=== PATIENT | male | born 1975 | race Hispanic/Latino ===

== ENCOUNTER 2022-07-07 07:52 | Observation (INO) | payer OTHER ==
[~2022-07-07] VITALS: Ht 160 cm; Wt 72.6 kg
[2022-07-07] MEDS ORDERED: NITROGLYCERIN 0.4 MG SL TAB SL ONE (08:14)
[2022-07-07] MEDS ORDERED: NITROGLYCERIN 1GM OINT 1 INCH/1GM TD ONE (08:14)
[2022-07-07] MEDS ORDERED: ASPIRIN 325MG TAB ONE (08:14)
[2022-07-07] MEDS ORDERED: METOPROLOL TARTRATE 1 MG/ML 5ML VIAL IV SCH (08:20)
[2022-07-07 09:05] LABS: BASOPHILS % (AUTO) 0.6 % (0.0-5.0); EOSINOPHILS % (AUTO) 1.6 % (0.0-8.0); HEMATOCRIT 44.8 % (42-54); LYMPHOCYTES % (AUTO) 19.1 % (21.0-51.0); MEAN CORPUSCULAR HGB CONC 34.2 g/dL (32.0-36.0); MONOCYTES % (AUTO) 7.6 % (3.0-13.0); NEUTROPHILS % (AUTO) 70.7 % (40.0-77.0); PLATELET COUNT (AUTO) 207 K/uL (130-400); RED BLOOD CELL COUNT(AUTO) 5.27 MIL/uL (4.50-6.20); RED CELL DISTRIBUTION WIDTH 12.1 % (11.0-15.5); WHITE BLOOD COUNT (AUTO) 7.9 K/uL (4.8-10.8)
[2022-07-07 09:14] LABS: CREATININE 1.1 mg/dL (0.5-1.5)
[2022-07-07 09:19] LABS: ALBUMIN 3.8 g/dL (3.5-5.0); TOTAL PROTEIN, SERUM 7.5 g/dL (6.0-8.3)
[2022-07-07 10:45] LABS: B-TYPE NATRIURETIC PEPTIDE < 5 pg/mL (0-100)
[2022-07-07 11:39] LABS: HEMOGLOBIN A1C 7.3 % (4.0-6.0)
[2022-07-07] MEDS ORDERED: NITROGLYCERIN 0.4 MG SL TAB SL PRN (12:30)
[2022-07-07 13:35] LABS: AMPHET/METH SCREEN,URINE NEGATIVE (NEGATIVE); BARBITURATE SCREEN, URINE NEGATIVE (NEGATIVE); BENZODIAZEPINES SCREEN,URINE NEGATIVE (NEGATIVE); CANNABINOID SCREEN,URINE NEGATIVE (NEGATIVE); COCAINE SCREEN,URINE NEGATIVE (NEGATIVE); OPIATE SCREEN,URINE NEGATIVE (NEGATIVE); PHENCYCLIDINE SCREEN,URINE NEGATIVE (NEGATIVE)
[2022-07-07] MEDS: CLOPIDOGREL 75MG TAB PO SCH (14:42)
[2022-07-07] MEDS ORDERED: MORPHINE 2 MG SYG ONE (17:32)
[2022-07-07] MEDS ORDERED: ONDANSETRON 4MG INJ ONE (17:32)
[2022-07-07] MEDS ORDERED: ONDANSETRON 4MG INJ IVP ONE (18:00)
[2022-07-07] MEDS ORDERED: MORPHINE 2 MG SYG IVP ONE (18:00)
[2022-07-07 18:15] VITALS: BP 147/97
[2022-07-07] MEDS ORDERED: CLOP-31 PO (18:29)
[2022-07-07] MEDS ORDERED: SUMA100T16 PO (18:29)
[2022-07-07] MEDS ORDERED: AMLO-258 PO (18:29)
[2022-07-07] MEDS ORDERED: ACET-2123 PO (18:29)
[2022-07-07] MEDS ORDERED: HYDR25TA PO (18:29)
[2022-07-07] MEDS ORDERED: METF-446 PO (18:29)
[2022-07-07] MEDS ORDERED: LOSA100T58 PO (18:29)
[2022-07-07] MEDS ORDERED: EZET10TA13 PO (18:29)
[2022-07-07] MEDS ORDERED: TRAZ-185 PO (18:29)
[2022-07-07] MEDS ORDERED: NITR0.3T11 SL (18:29)
[2022-07-07] MEDS ORDERED: PANT20TA PO (18:29)
[2022-07-07] MEDS ORDERED: FLUO20CA30 PO (18:29)
[2022-07-07] MEDS ORDERED: CARV25TA PO (18:29)
[2022-07-07 19:50] VITALS: BP 140/95
[2022-07-07] MEDS ORDERED: ATORVASTATIN 40 MG TABLET PO SCH (21:00)
[2022-07-07] MEDS: CARVEDILOL 25 MG TABLET PO SCH (21:06)
[2022-07-07 23:46] VITALS: BP 98/65
[2022-07-08 04:20] VITALS: BP 94/70
[2022-07-08 06:04] LABS: BASOPHILS % (AUTO) 0.6 % (0.0-5.0); EOSINOPHILS % (AUTO) 2.3 % (0.0-8.0); HEMATOCRIT 44.7 % (42-54); LYMPHOCYTES % (AUTO) 19.1 % (21.0-51.0); MEAN CORPUSCULAR HEMOGLOBIN 29.2 pg (27.0-33.0); MEAN CORPUSCULAR VOLUME 85.8 fL (79-99); MONOCYTES % (AUTO) 8.8 % (3.0-13.0); NEUTROPHILS % (AUTO) 68.7 % (40.0-77.0); PLATELET COUNT (AUTO) 221 K/uL (130-400); RED BLOOD CELL COUNT(AUTO) 5.21 MIL/uL (4.50-6.20); RED CELL DISTRIBUTION WIDTH 12.2 % (11.0-15.5); WHITE BLOOD COUNT (AUTO) 9.5 K/uL (4.8-10.8)
[2022-07-08 06:12] LABS: CREATININE 1.5 mg/dL (0.5-1.5); MAGNESIUM 1.6 mg/dL (1.80-2.40); POTASSIUM 4.1 mmol/L (3.5-5.1)
[2022-07-08] MEDS ORDERED: MAGNESIUM 2GM PREMIX 50ML 50 ML IV PRN (08:00)
[2022-07-08 08:39] VITALS: BP 129/89
[2022-07-08] MEDS ORDERED: PANTOPRAZOLE 40 MG TAB DR PO SCH (09:00)
[2022-07-08] MEDS ORDERED: FLUOXETINE HCL 20 MG CAPSULE PO SCH (09:00)
[2022-07-08] MEDS ORDERED: AMLODIPINE 5 MG TAB PO SCH (09:00)
[2022-07-08] MEDS: CARVEDILOL 25 MG TABLET PO SCH (09:15)
[2022-07-08] MEDS: CLOPIDOGREL 75MG TAB PO SCH (09:15)
[2022-07-08] MEDS ORDERED: MAGNESIUM OXIDE 400 MG TABLET PO SCH (11:30)
[2022-07-08 12:08] VITALS: BP 124/87
[2022-07-08 16:43] VITALS: BP 133/96
== END 2022-07-08 17:57 | disposition home or self-care (01) ==
LOC: EDH 07:52 → EDHIP 11:03 → 2DH 18:00
PROVIDERS: ADMIT Internal Medicine; ATTEND Internal Medicine
DX: I25.10 Atherosclerotic heart disease of native coronary artery without angina pectoris (principal); I10 Essential (primary) hypertension; E11.9 Type 2 diabetes mellitus without complications; E78.5 Hyperlipidemia, unspecified; I25.2 Old myocardial infarction; R55 Syncope and collapse; I16.0 Hypertensive urgency; R07.89 Other chest pain; E78.00 Pure hypercholesterolemia, unspecified; I25.110 Atherosclerotic heart disease of native coronary artery with unstable angina pectoris; Z98.61 Coronary angioplasty status; Z79.899 Other long term (current) drug therapy; Z79.84 Long term (current) use of oral hypoglycemic drugs; Z95.1 Presence of aortocoronary bypass graft; Z98.890 Other specified postprocedural states; Y93.K1 Activity, walking an animal
CPT/HCPCS: 36415; 71045; 80048; 80053; 80305; 82948; 83036; 83735; 83880; 84443; 84484; 85025; 93005; 93306; 93356; 93880; 96365; 99291; G0378; J2405; J3475

== ENCOUNTER 2023-06-25 19:55 | Emergency (ER) | payer BC, OTHER ==
[~2023-06-25] VITALS: Ht 160 cm; Wt 76.7 kg
[~2023-06-25 19:55] MED LIST: ACET-2123 PO; AMLO-258 PO; CARV25TA PO; CLOP-31 PO; EZET10TA81 PO; FLUO20CA30 PO; HYDR25TA PO; LOSA100T59 PO; METF-446 PO; NITR0.3T11 SL; PANT20TA PO; SUMA100T16 PO; TRAZ-185 PO
[2023-06-25 20:49] LABS: BASOPHILS # (AUTO) 0.09 K/uL (0.00-0.20); BASOPHILS % (AUTO) 0.5 % (0.0-5.0); EOSINOPHILS # (AUTO) 0.47 K/uL (0.00-0.70); EOSINOPHILS % (AUTO) 2.8 % (0.0-8.0); HEMATOCRIT 46.3 % (42-54); IMMATURE GRANULOCYTE ABSOLUTE 0.06 K/uL (0-1); LYMPHOCYTES # (AUTO) 1.9 K/uL (1.0-4.8); LYMPHOCYTES % (AUTO) 11.2 % (21.0-51.0); MEAN CORPUSCULAR HEMOGLOBIN 29.4 pg (27.0-33.0); MEAN CORPUSCULAR HGB CONC 34.8 g/dL (32.0-36.0); MEAN CORPUSCULAR VOLUME 84.6 fL (79-99); MONOCYTES # (AUTO) 1.7 K/uL (0.1-1.0); MONOCYTES % (AUTO) 9.9 % (3.0-13.0); NEUTROPHILS # (AUTO) 12.7 K/uL (1.8-7.7); NEUTROPHILS % (AUTO) 75.2 % (40.0-77.0); PLATELET COUNT (AUTO) 255 K/uL (130-400); RED BLOOD CELL COUNT(AUTO) 5.47 MIL/uL (4.50-6.20); RED CELL DISTRIBUTION WIDTH 11.7 % (11.0-15.5); WHITE BLOOD COUNT (AUTO) 16.9 K/uL (4.8-10.8)
[2023-06-25 21:09] LABS: SARS-CoV-2, RNA, NAAT NEGATIVE SARS CoV-2 (NEGATIVE)
[2023-06-25 21:14] LABS: INFLUENZA TYPE A Negative For Type A (NEGATIVE); INFLUENZA TYPE B Negative For Type B (NEGATIVE)
[2023-06-25 21:14] LABS: ALBUMIN 3.6 g/dL (3.5-5.0); BILIRUBIN,TOTAL 1.5 mg/dL (0.2-1.0); TOTAL PROTEIN, SERUM 7.7 g/dL (6.0-8.3)
[2023-06-25 21:24] LABS: APPEARANCE,URINE CLEAR (CLEAR); BILIRUBIN,URINE NEGATIVE (NEGATIVE); COLOR,URINE LIGHT-YELLOW (YELLOW); GLUCOSE, URINE (UA) >=1000 mg/dL (NEGATIVE); KETONES,URINE NEGATIVE (NEGATIVE); LEUKOCYTE ESTERASE ,URINE NEGATIVE Leu/uL (NEGATIVE); NITRATE,URINE NEGATIVE (NEGATIVE); OCCULT BLOOD,URINE NEGATIVE (NEGATIVE); PH,URINE 5.5 (5.0-8.0); PROTEIN,URINE NEGATIVE (NEGATIVE); UROBILINOGEN,URINE 0.2 mg/dL (0.2-1.0)
[2023-06-25 21:25] LABS: ADD UA MICROSCOPIC YES
[2023-06-25 21:28] LABS: WBC,URINE 0-1 /HPF (0-1)
[2023-06-25 23:42] VITALS: BP 106/62; PULSE 84; RESP 17; O2SAT 98
== END 2023-06-25 23:43 | disposition home or self-care (01) ==
LOC: EDH 19:55
DX: N17.9 Acute kidney failure, unspecified (principal); I10 Essential (primary) hypertension; E11.9 Type 2 diabetes mellitus without complications; I25.2 Old myocardial infarction; Z79.02 Long term (current) use of antithrombotics/antiplatelets; Z79.899 Other long term (current) drug therapy; Z90.49 Acquired absence of other specified parts of digestive tract; Z95.5 Presence of coronary angioplasty implant and graft; Z20.822 Contact with and (suspected) exposure to COVID-19
CPT/HCPCS: 99285; 71045; 87635; 84484; 80053; 85025; 87804 ×2; 81001; 36415; 93005; C9803